=== PATIENT | male | born 1980 | race Caucasian/White ===

== ENCOUNTER 2022-09-02 12:42 | Emergency (ER) | payer OTHER ==
[~2022-09-02] VITALS: Ht 182.9 cm; Wt 84.8 kg
[2022-09-02 12:45] VITALS: BP_SYST 132
--- NOTE | 2022-09-02 12:45 | NUR ---
Patient triaged and placed in waiting room. VSS and patient appears in no acute distress at this time. Accompanied by , awaiting available bed, and MD notified of need for MSE.
--- NOTE | 2022-09-02 13:09 | NUR ---
ER DR. ROMERO EXAMINING PT IN TRIAGE
--- NOTE | 2022-09-02 13:12 | NUR ---
PT ELOPED FROM ER
== END 2022-09-02 13:12 | disposition left against medical advice (07) ==
LOC: SED 12:42
DX: Z04.1 Encounter for examination and observation following transport accident (principal); M54.50 Low back pain, unspecified; M54.2 Cervicalgia; M25.511 Pain in right shoulder; Z79.899 Other long term (current) drug therapy
CPT/HCPCS: 99281